=== PATIENT | female | born 1995 | race Asian ===

== ENCOUNTER 2024-01-19 12:23 | Inpatient (IN) | payer OTHER, SELFPAY ==
[2024-01-19 12:43] VITALS: BP 112/66; BMI 28.5
[2024-01-19 13:13] LABS: % Basophils 0.2 % (0-2); % Eosinophils 0.2 % (0-6); % Immature Granulocytes 0.4 % (0-0.5); % Lymphocytes 17.2 % (20.5-51.1); % Monocytes 5.4 % (1.7-9.3); % Neutrophils 76.6 % (42.2-75.2); Absolute Lymphocytes 1.8 10^3/uL (1.2-3.4); Absolute Monocytes 0.6 10^3/uL (0.1-0.6); Hemoglobin 13.3 g/dL (12.0-16.0); Mean Corp Hgb Conc. 35.9 g/dL (33.0-37.0); Mean Corpuscular Hgb 30.8 pg (27.0-31.0); Mean Corpuscular Volume 85.6 fL (81.0-99.0); Mean Platelet Volume 9.8 fL (7.4-10.4); Nucleated Red Blood Cells % 0 %; Platelet Count 242 10^3/uL (130-400); Red Blood Cell Count 4.32 10^6/uL (4.20-5.40); Red Cell Dist. Width 14.6 % (11.5-14.5); White Blood Cell Count 10.4 10^3/uL (4.8-10.8)
[2024-01-19] MEDS: PENICILLIN 110 UNITS IV (13:20)
[2024-01-19] MEDS: LR 1000 IV (13:20)
[2024-01-19] MEDS: SUBLIMAZE 100 MCG EPIDURAL (15:30)
[2024-01-19] MEDS: FENTANYL/BUPIVACAINE 100 EPIDURAL (15:36)
[2024-01-19] MEDS: PITOCIN 30 UNITS/NSS 500 ML IV (16:18)
[2024-01-19] MEDS: PENICILLIN 55 UNITS IV (17:17)
[2024-01-20 04:58] LABS: Hematocrit 36.6 % (37.0-47.0); Hemoglobin 13.1 g/dL (12.0-16.0)
[2024-01-20] MEDS: MOTRIN 600 MG PO ×3 (06:31→20:37)
[2024-01-20] MEDS: TYLENOL 650 MG PO ×2 (06:31→20:37)
[2024-01-20] MEDS: PRENATAL PLUS PO (12:56)
[2024-01-21] MEDS: TYLENOL 650 MG PO ×2 (03:47→11:25)
[2024-01-21] MEDS: MOTRIN 600 MG PO ×2 (03:47→11:25)
[2024-01-21] MEDS: PRENATAL PLUS 1 TABLET PO (08:54)
== END 2024-01-21 12:09 | disposition home or self-care (01) | DRG 807 ==
LOC: LDRP 12:23
PROVIDERS: ADMITTING PHYSICIAN Obstetrics & Gynecology; ATTENDING PHYSICIAN Obstetrics & Gynecology
PROC: 10907ZC Drainage of Amniotic Fluid, Therapeutic from Products of Conception, Via Natural or Artificial Opening (ICD-10-PCS; 2024-01-19)
PROC: 10E0XZZ Delivery of Products of Conception, External Approach (ICD-10-PCS; 2024-01-19)
PROC: 0KQM0ZZ Repair Perineum Muscle, Open Approach (ICD-10-PCS; 2024-01-19)
DX: O48.0 Post-term pregnancy (principal); Z37.0 Single live birth; Z3A.40 40 weeks gestation of pregnancy; O70.1 Second degree perineal laceration during delivery; O99.824 Streptococcus B carrier state complicating childbirth; O77.0 Labor and delivery complicated by meconium in amniotic fluid
CPT/HCPCS: 36415; 85014; 85018; 85025; 86780; 86850; 86900; 86901